=== PATIENT | female | born 1995 | race Native Hawaiian/Other Pacific Islander ===

== ENCOUNTER 2017-01-13 22:05 | Emergency (ER) | payer OTHER ==
[~2017-01-13] VITALS: Ht 167.6 cm; Wt 106.6 kg
[2017-01-13 22:50] VITALS: BP 131/70; TEMP 98.1
== END 2017-01-13 22:53 | disposition home or self-care (01) ==
LOC: ED 22:05
DX: R10.84 Generalized abdominal pain (principal); Z33.1 Pregnant state, incidental
CPT/HCPCS: 99281

== ENCOUNTER 2017-02-07 00:07 | Emergency (ER) | payer OTHER ==
[~2017-02-07] VITALS: Ht 167.6 cm; Wt 104.8 kg
[2017-02-07 00:32] VITALS: BP 130/65; TEMP 98.5
[2017-02-07 00:59] LABS: PLATELET COUNT 232 K/uL (152-353)
== END 2017-02-07 03:20 | disposition left against medical advice (07) ==
LOC: ED 00:07
PROVIDERS: Emergency Medicine
DX: O20.8 Other hemorrhage in early pregnancy (principal); Z3A.01 Less than 8 weeks gestation of pregnancy
CPT/HCPCS: 36415; 81000; 81025; 84702; 85027; 99283

== ENCOUNTER 2017-03-31 20:25 | Emergency (ER) | payer OTHER ==
[~2017-03-31] VITALS: Ht 167.6 cm; Wt 98.9 kg
[2017-03-31 22:53] LABS: PLATELET COUNT 169 K/uL (152-353)
[2017-03-31 23:09] LABS: POTASSIUM 3.3 mmol/L (3.6-5.2); SODIUM 134 mmol/L (136-145)
[2017-03-31 23:37] VITALS: BP 126/60; TEMP 98.4
== END 2017-03-31 23:37 | disposition home or self-care (01) ==
LOC: ED 20:25
PROVIDERS: Specialist
DX: K22.6 Gastro-esophageal laceration-hemorrhage syndrome (principal); O21.0 Mild hyperemesis gravidarum
CPT/HCPCS: 80053; 85027; 96360; 96376; 99283; J2405; J2550; J2780

== ENCOUNTER 2017-05-03 08:01 | Emergency (ER) | payer OTHER ==
[~2017-05-03] VITALS: Ht 167.6 cm; Wt 99.8 kg
[2017-05-03 08:06] VITALS: BP 145/81; TEMP 98.6
[2017-05-03] MEDS ORDERED: ZOFRAN8 MG OR (08:19)
[2017-05-03] MEDS ORDERED: ZANTAC 75 PO (08:20)
[2017-05-03 10:04] LABS: PLATELET COUNT 63 K/uL (152-353)
== END 2017-05-03 10:10 | disposition home or self-care (01) ==
LOC: ED 08:01
PROVIDERS: Emergency Medicine
DX: R10.2 Pelvic and perineal pain (principal); Z33.1 Pregnant state, incidental
CPT/HCPCS: 36415; 81000; 84702; 85027; 99283

== ENCOUNTER 2017-05-23 13:45 | Outpatient (CLI) | payer OTHER ==
[~2017-05-23 13:45] MED LIST: ZANTAC 75 PO; ZOFRAN8 MG OR
== END 2017-05-23 14:07 | disposition short-term general hospital (02) ==
LOC: AMB 13:45
DX: R25.2 Cramp and spasm (principal); R11.2 Nausea with vomiting, unspecified; R19.7 Diarrhea, unspecified; Z3A.23 23 weeks gestation of pregnancy; Z33.1 Pregnant state, incidental
CPT/HCPCS: A0425; A0427

== ENCOUNTER 2017-05-24 14:54 | Emergency (ER) | payer OTHER ==
[~2017-05-24] VITALS: Ht 167.6 cm; Wt 97.1 kg
[2017-05-24 18:05] VITALS: BP 118/78; TEMP 98.3
== END 2017-05-24 18:05 | disposition home or self-care (01) ==
LOC: ED 14:54
DX: A09 Infectious gastroenteritis and colitis, unspecified (principal)
CPT/HCPCS: 87015; 87045; 87077; 87185; 87186; 87205; 87899; 99282

== ENCOUNTER 2017-08-13 08:23 | Emergency (ER) | payer OTHER ==
[~2017-08-13] VITALS: Ht 170.2 cm; Wt 97.1 kg
[2017-08-13 08:29] VITALS: TEMP 98.2
[2017-08-13 09:30] VITALS: BP 132/82
== END 2017-08-13 10:05 | disposition home or self-care (01) ==
LOC: ED 08:23
DX: L03.116 Cellulitis of left lower limb (principal); L02.416 Cutaneous abscess of left lower limb
CPT/HCPCS: 96372; 99283; J0696; J1885

== ENCOUNTER 2017-12-10 19:40 | Outpatient (CLI) | payer OTHER | END 2017-12-10 19:52 | disposition home or self-care (01) | LOC: LAB 19:40 | DX: L02.212 Cutaneous abscess of back [any part, except buttock and flank] (principal) | CPT/HCPCS: 87070; 87205 ==

== ENCOUNTER 2018-08-21 09:48 | Outpatient (CLI) | payer OTHER | END 2018-08-21 21:52 | disposition home or self-care (01) | LOC: RAD 09:48 | DX: R74.8 Abnormal levels of other serum enzymes (principal) ==

== ENCOUNTER 2021-08-18 21:14 | Emergency (ER) | payer OTHER ==
[~2021-08-18] VITALS: Ht 167.6 cm; Wt 86.2 kg
[2021-08-18 22:37] VITALS: BP 125/87; TEMP 98.6
== END 2021-08-18 22:37 | disposition home or self-care (01) ==
LOC: ED 21:14
PROC: 0HQEXZZ Repair Left Lower Arm Skin, External Approach (ICD-10-PCS; principal; 2021-08-18)
DX: S51.812A Laceration without foreign body of left forearm, initial encounter (principal); W01.0XXA Fall on same level from slipping, tripping and stumbling without subsequent striking against object, initial encounter; Y92.89 Other specified places as the place of occurrence of the external cause
CPT/HCPCS: 99283; J7040